=== PATIENT | female | born 1990 | race Caucasian/White ===

== ENCOUNTER → 2019-10-07 13:41 | Outpatient (CLI) | payer BC, SELFPAY ==
--- NOTE | ~2019-10-07 | US_ITS ---
US breast LT limited DATE: 10/07/2019 13:56 INDICATION: Left breast lump at 11:00 4 cm from nipple TECHNIQUE: High-resolution ultrasound imaging of the left breast targeted to area of clinical complai nt at 11:00 4 cm from nipple COMPARISON: None FINDINGS: There is no solid mass or suspicious shadowing, cyst or other significant finding. Clinical complaint. IMPRESSION: BI-RADS Category 1: Negative Recommendation: Routine mammographic screening beginning at age 40 unless there are earlier breast cl inical complaints or physical findings Reviewed, dictated and finalized at [facility]. Reviewed, dictated and finalized at location A. IMPRESSION: BI-RADS Category 1: Negative Recommendation: Routine mammographic screening beginning at age 40 unless there are earlier breast clinical complaints or physical findings
== END ==
PROVIDERS: PCP Family Medicine; Visit Provider Nurse Practitioner
DX: N63.20 Unspecified lump in the left breast, unspecified quadrant (principal)
CPT/HCPCS: 76642

== ENCOUNTER 2019-12-24 09:00 | Outpatient (CLI) | payer BC, SELFPAY ==
--- NOTE | ~2019-12-24 | XR_ITS ---
EXAMINATION: XR chest 2V 12/24/2019 09:27 INDICATION: Pleurodynia. Left-sided chest pain. PROCEDURE: 2 view chest COMPARISON: No prior studies for comparison. FINDINGS: The lungs are clear. The cardiomediastinal silhouette is within normal limits. There are no pleural effusions. There is no pneumothorax suspected. IMPRESSION: 1: NO ACUTE CARDIOPULMONARY DISEASE. Reviewed, dictated and finalized at location A.
== END 2019-12-24 09:01 | disposition home or self-care (01) ==
LOC: ANHIMG 09:05
PROVIDERS: PCP Family Medicine; Visit Provider Physician Assistant
DX: R07.81 Pleurodynia (principal)
CPT/HCPCS: 71046

== ENCOUNTER 2019-12-31 18:16 | Outpatient (CLI) | payer BC, SELFPAY ==
--- NOTE | ~2019-12-31 | MR_ITS ---
EXAMINATION: MR lumbar spine wo con DATE: 12/31/2019 19:18 INDICATION: Low back pain. TECHNIQUE: Magnetic resonance imaging (MRI) of the lumbar spine was performed without intravenous con trast. Sequences included sagittal T2-weighted FSE, sagittal T2-weighted FS FSE, sagittal T1-weighted FSE, and axial T2-weighted FSE. COMPARISON: 04/12/2016 FINDINGS: Alignment is normal. Vertebral body heights are normal. Normal marrow signal. Disc heights are kanu l. The conus medullaris terminates at L2. There is normal signal in the caudal spinal cord. Paraverte bral soft tissues are unremarkable. The following disc levels are specifically discussed: T12-L1: Disc is minimally bulging. There is mild right and minimal left facet joint osteoarthritis. T here is no neural foraminal stenosis. There is no central canal stenosis. L1-L2: Disc is mildly bulging. There is minimal right facet joint osteoarthritis. There is no neural foraminal stenosis. There is minimal central canal stenosis. L2-L3: Disc is mildly bulging. There is minimal bilateral facet joint osteoarthritis. There is mild l eft neural foraminal stenosis. There is minimal central canal stenosis. L3-L4: Disc is mildly bulging. There is mild bilateral facet joint osteoarthritis. There is mild left and minimal right neural foraminal stenosis. There is minimal central canal stenosis. L4-L5: Disc is mildly bulging. There is mild bilateral facet joint osteoarthritis. There is mild bila teral neural foraminal stenosis. There is minimal central canal stenosis. L5-S1: Disc is mildly bulging. There is mild bilateral facet joint osteoarthritis. There is mild bila teral neural foraminal stenosis. There is minimal central canal stenosis. IMPRESSION: 1. Slight progression in still mild lumbar spondylosis. Reviewed, dictated and finalized at location [facility].
== END 2019-12-31 18:17 | disposition home or self-care (01) ==
PROVIDERS: PCP Family Medicine; Visit Provider Physician Assistant
DX: M51.26 Other intervertebral disc displacement, lumbar region (principal); M51.27 Other intervertebral disc displacement, lumbosacral region; G89.29 Other chronic pain
CPT/HCPCS: 72148

== ENCOUNTER → 2021-02-17 09:20 | Outpatient (CLI) | payer BC, SELFPAY ==
--- NOTE | ~2021-02-17 | MMUS_ITS ---
EXAMINATION: MM diagnostic wilmar BI w brandi, US breast LT complete HISTORY: Palpable left breast lump TECHNIQUE: Additional 3-D tomosynthesis images of the breasts were performed and synthetic 2-D images were generated. CAD analysis was submitted and interpreted. High resolution bilateral breast ultraso und was performed. COMPARISON: Comparison to multiple prior studies sequentially, with oldest reviewed study dated 10/06. BREAST PARENCHYMAL COMPOSITION: The breasts are extremely dense, which lowers the sensitivity of mamm ography. FINDINGS: MAMMOGRAPHIC FINDINGS: There are no suspicious masses, calcifications or architectural distortion in either breast to sugges t malignancy. ULTRASOUND: Complete left breast ultrasound: No discrete mass is identified in the area of palpable concern. At 1 0:00, 1 cm from the nipple, there is a circumscribed oval hypoechoic mass measuring 1.2 x 0.7 x 0.3 c m, likely complicated cysts. There is parallel orientation, no significant posterior features and no internal vascularity. IMPRESSION: 1. Probable benign left breast mass at 10:00, 1 cm from the nipple. No definite mammographic correlat e. 2. Recommend 6 month follow-up targeted left breast ultrasound BI-RADS category 3, probably benign findings. Reviewed, dictated and finalized at location [facility]. IMPRESSION: 1. Probable benign left breast mass at 10:00, 1 cm from the nipple. No definite mammographic correlate. 2. Recommend 6 month follow-up targeted left breast ultrasound BI-RADS category 3, probably benign findings.
== END ==
PROVIDERS: Visit Provider Nurse Practitioner
DX: N63.20 Unspecified lump in the left breast, unspecified quadrant (principal); R92.8 Other abnormal and inconclusive findings on diagnostic imaging of breast
CPT/HCPCS: 76641; 77062; 77066; G0279

== ENCOUNTER → 2021-10-04 14:10 | Outpatient (CLI) | payer BC, SELFPAY ==
--- NOTE | ~2021-10-04 | CT_ITS ---
EXAMINATION: CT abdomen pelvis w con INDICATION: Generalized abdominal pain TECHNIQUE: Computed tomographic images of the abdomen and pelvis were obtained after the administrati on of 100 cc of Omnipaque 350 intravenous contrast. The dose-length product (DLP) was 418.34 mGy-cm. Automated exposure control and iterative reconstruction technique were employed. COMPARISON: None available FINDINGS: The lung bases are clear. The heart size is normal. The liver, spleen, pancreas, gallbladde r, and adrenal glands are normal. There is a 4 mm cyst of the right kidney. The left kidney is unrema rkable. No pathologically enlarged abdominal or pelvic lymph nodes are identified. Calcified atherosc lerosis is noted. The appendix is normal. There is no free intraperitoneal gas or evidence of bowel o bstruction. IMPRESSION: 1. No CT correlate for the patient's symptoms. Reviewed, dictated and finalized at location [facility].
== END ==
PROVIDERS: PCP Physician Assistant; Visit Provider Physician Assistant
DX: N20.0 Calculus of kidney (principal); F17.210 Nicotine dependence, cigarettes, uncomplicated
CPT/HCPCS: 74177; Q9967

== ENCOUNTER → 2021-10-11 09:07 | Outpatient (CLI) | payer BC, SELFPAY ==
--- NOTE | ~2021-10-11 | US_ITS ---
EXAMINATION: US breast LT limited HISTORY: Six-month follow-up for probably benign left breast mass TECHNIQUE: Limited left breast ultrasound was performed in the upper inner quadrant FINDINGS: There is a stable 1.2 x 0.4 cm oval, circumscribed, parallel, hypoechoic mass with no poste rior features or internal vascularity at the 10:00 location 1 cm from the nipple. IMPRESSION: Stable, probably benign left breast mass. Follow-up targeted ultrasound in six months is recommended. BI-RADS category 3, probably benign findings. Reviewed, dictated and finalized at location [facility].
== END ==
PROVIDERS: PCP Nurse Practitioner; Visit Provider Nurse Practitioner
DX: N63.20 Unspecified lump in the left breast, unspecified quadrant (principal); R92.8 Other abnormal and inconclusive findings on diagnostic imaging of breast
CPT/HCPCS: 76642

== ENCOUNTER 2021-10-22 09:28 | Outpatient (CLI) | payer BC, SELFPAY ==
--- NOTE | ~2021-10-22 | NM_ITS ---
EXAMINATION: NM hepatobiliary wo pharm DATE: 10/22/2021 11:53 INDICATION: Upper abdominal pain COMPARISON: None. TECHNIQUE: 5.0 mCi Tc-99m mebrofenin (Choletec) was administered intravenously. Scintigraphic images of the abdomen were obtained for one hour. At the 1 hour time point, the patient drank 8 oz Ensure, and imaging was continued for 60 minutes. Gallbladder ejection fraction was calculated by the technol ogist. FINDINGS: There is normal clearance of radiotracer from the blood pool. There is homogeneous tracer u ptake by the liver. Activity progresses to the bowel and gallbladder. The gallbladder ejection fract ion (GBEF) is 80%. Note that with this technique, normal GBEF >= 33%. IMPRESSION: 1. Normal hepatobiliary scan Reviewed, dictated and finalized at location [facility].
== END 2021-10-22 09:29 | disposition home or self-care (01) ==
PROVIDERS: PCP Physician Assistant; Visit Provider Physician Assistant
DX: R10.10 Upper abdominal pain, unspecified (principal)
CPT/HCPCS: 78226; A9537

== ENCOUNTER 2021-11-03 00:59 | Day surgery (SDC) | payer BC, SELFPAY ==
[2021-10-26 13:28] VITALS: BMI 25.0
--- NOTE | 2021-11-03 09:06 | WPDANESEPPF ---
Anes - Initial Pre Proc Eval Procedure: Operation Date: 11/03/21 13:15 Proposed Procedures p Esophagogastroduodenoscopy - Dougie Salmeron MD Date/Time: 11/03/21 09:06 Surgeon: Dougie Salmeron MD Pre Op Diagnosis: Abdominal pain Patient Data Age: 31 Gender: F Height: 1.63 m Weight: 66 kg Allergies Allergy/AdvReac Type Severity Reaction Status Date / Time Penicillins Allergy Intermediate Hives Verified 11/03/21 11:54 Sulfa (Sulfonamide AdvReac Intermediate Gastrointestinal Verified 11/03/21 11:54 Antibiotics) Upset sulfamethoxazole AdvReac Intermediate Gastrointestinal Verified 11/03/21 11:54 Upset trimethoprim AdvReac Intermediate Gastrointestinal Verified 11/03/21 11:54 Upset Home Medications Medication Instructions Recorded Confirmed Type cetirizine 10 mg tablet 10 mg PO HS 05/20/19 10/26/21 History budesonide-formoterol HFA 160 2 puff INHALATION Q12H #10.2 gm 08/12/19 10/26/21 Rx mcg-4.5 mcg/actuation aerosol inhaler montelukast 10 mg tablet 10 mg PO DAILY #90 tablet 11/28/19 10/26/21 Rx albuterol sulfate 90 mcg/actuation 1 puff INHALATION Q4H PRN #8 gm 12/18/19 10/26/21 Rx aerosol inhaler duloxetine 30 mg PO BID 10/26/21 10/26/21 History lorazepam 0.5 mg PO BID PRN 10/26/21 10/26/21 History pantoprazole 40 mg PO DAILY 10/26/21 10/26/21 History prazosin 2 mg PO HS PRN 10/26/21 10/26/21 History Patient hx anesthesia problems: none Family hx anesthesia problems: none Results Review: All pre-operative results and documents have been reviewed as part of the pre-operative evaluation. [facility] Past Medical History Medical History Anxiety and depression Asthma Benign tumor of breast Chronic headaches Chronic sinusitis DDD (degenerative disc disease) GERD (gastroesophageal reflux disease) History of intravenous drug use in remission Lumbar spondylosis Tobacco use Surgical History Surgical History H/O sinus surgery History of Family History Family History Mother Depression Anxiety Father Hypertension Anxiety Depression Sibling Depression Anxiety Grandparent Diabetes mellitus Depression Grandparent Heart disease Cerebrovascular accident Kidney failure Chronic mental illness Grandparent Breast cancer Cerebrovascular accident COPD (chronic obstructive pulmonary disease) Grandparent Heart disease COPD (chronic obstructive pulmonary disease) Social History Social History Smoking packs per day: 0.75 Smoking cigarettes per day: 15.0 Years smoked: 21 Smoking pack-years: 15.75 Smoking status: Current every day smoker Tobacco type: cigarettes Alcohol intake: current Substance use: never Substance use type: marijuana Other substance usage details: SMOKE- DAILY- MEDICAL CARD Living arrangements: with family Spiritual care concerns: No Anes - Eval Final PreProcedure Day of Procedure 11/03/21 09:06 Patient weight: normal Heart: regular rate and rhythm Lungs: clear to auscultation and normal air movement Airway: Mallampati scale class II Neurological: alert and oriented Last oral intake: >/= 8 hours ASA classification: II Emergent: no Anesthetic plan: proceed Anesthesia type and monitoring: general GIVS Results Review: All pre-operative results and documents have been reviewed as part of the pre-operative evaluation. Informed Consent: The patient's anesthetic plan and its attendant risks and benefits were discussed with the patient/family/POA. Questions were solicited and answers provided to the satisfaction of the patient/family/POA.
--- NOTE | 2021-11-03 11:56 | WPDGICN ---
Assessment and Plan Assessment and plan (1) Epigastric pain: Code(s): R10.13 - Epigastric pain Status: Acute Assessment and Plan: EGD with possible biopsy or dilatation or cautery. GI Consult Note Consult date/time: 11/03/21 11:56 HPI: Marily Arroyo is a 31 year old female Who has been having epigastric and upper abdominal pain for the last few months. It is often worse after eating. Prilosec helps somewhat. It is a burning and also a sharp pain at times. This has been going on for several months. recently was so severe that she had to leave work. She has a pain in the umbilical area and also epigastric area, often at the same time. We will occur every few days. She began taking pantoprazole in has helped it somewhat, taking the edge off. But she is still afraid to eat because of fear of the symptoms coming back Review of Systems Review of Systems: All systems reviewed & are unremarkable except as noted in HPI and below PMFSH Past Medical History Medical History Anxiety and depression Asthma Benign tumor of breast Chronic headaches Chronic sinusitis DDD (degenerative disc disease) GERD (gastroesophageal reflux disease) History of intravenous drug use in remission Lumbar spondylosis Tobacco use Surgical History Surgical History H/O sinus surgery History of Family History Family History Mother Depression Anxiety Father Hypertension Anxiety Depression Sibling Depression Anxiety Grandparent Diabetes mellitus Depression Grandparent Heart disease Cerebrovascular accident Kidney failure Chronic mental illness Grandparent Breast cancer Cerebrovascular accident COPD (chronic obstructive pulmonary disease) Grandparent Heart disease COPD (chronic obstructive pulmonary disease) Social History Social History Smoking packs per day: 0.75 Smoking cigarettes per day: 15.0 Years smoked: 21 Smoking pack-years: 15.75 Smoking status: Current every day smoker Tobacco type: cigarettes Alcohol intake: current Substance use: never Substance use type: marijuana Other substance usage details: SMOKE- DAILY- MEDICAL CARD Living arrangements: with family Spiritual care concerns: No Meds Home Medications and Allergies Home Medications Medication Instructions Recorded Confirmed Type cetirizine 10 mg tablet 10 mg PO HS 05/20/19 10/26/21 History budesonide-formoterol HFA 160 2 puff INHALATION Q12H #10.2 gm 08/12/19 10/26/21 Rx mcg-4.5 mcg/actuation aerosol inhaler montelukast 10 mg tablet 10 mg PO DAILY #90 tablet 11/28/19 10/26/21 Rx albuterol sulfate 90 mcg/actuation 1 puff INHALATION Q4H PRN #8 gm 12/18/19 10/26/21 Rx aerosol inhaler duloxetine 30 mg PO BID 10/26/21 10/26/21 History lorazepam 0.5 mg PO BID PRN 10/26/21 10/26/21 History pantoprazole 40 mg PO DAILY 10/26/21 10/26/21 History prazosin 2 mg PO HS PRN 10/26/21 10/26/21 History Allergies Allergy/AdvReac Type Severity Reaction Status Date / Time Penicillins Allergy Intermediate Hives Verified 11/03/21 11:54 Sulfa (Sulfonamide AdvReac Intermediate Gastrointestinal Verified 11/03/21 11:54 Antibiotics) Upset sulfamethoxazole AdvReac Intermediate Gastrointestinal Verified 11/03/21 11:54 Upset trimethoprim AdvReac Intermediate Gastrointestinal Verified 11/03/21 11:54 Upset Exam Const: General: alert Orientation/consciousness: patient oriented x3 Resp: Auscultation: clear to auscultation bilaterally Cardio: Rhythm: regular rhythm GI: GI Palp: Yes Soft to palpation and No Tenderness to palpation present (GI) Neuro: General: patient oriented x3
[2021-11-03 11:59] VITALS: BP 105/63; PULSE 77; RESP 18; TEMP 36.7; O2SAT 99
[2021-11-03] MEDS: LACTATED RINGERS 1,000 ML 150 ML IV CONT (12:05)
[2021-11-03 12:45] VITALS: BP 93/56; PULSE 78; RESP 19; O2SAT 100
[2021-11-03 12:55] VITALS: BP 120/82; PULSE 86; RESP 18; O2SAT 100
[2021-11-03 13:05] VITALS: BP 125/81; PULSE 80; RESP 24; O2SAT 98
== END 2021-11-03 13:17 | disposition home or self-care (01) ==
PROVIDERS: PCP Physician Assistant; Visit Provider Internal Medicine Gastroenterology
PROC: 0DJ08ZZ Inspection of Upper Intestinal Tract, Via Natural or Artificial Opening Endoscopic (ICD-10-PCS; CPT 43235; principal; 2021-11-03 13:15)
DX: K29.50 Unspecified chronic gastritis without bleeding (principal); J45.909 Unspecified asthma, uncomplicated; K21.9 Gastro-esophageal reflux disease without esophagitis; F41.8 Other specified anxiety disorders; Z79.51 Long term (current) use of inhaled steroids; F17.210 Nicotine dependence, cigarettes, uncomplicated; F12.90 Cannabis use, unspecified, uncomplicated
CPT/HCPCS: 43239; 87081; 88305; J2704; J7120

== ENCOUNTER → 2022-02-25 09:26 | Outpatient (CLI) | payer BC, SELFPAY ==
--- NOTE | ~2022-02-25 | CT_ITS ---
EXAMINATION: CT sinus wo con DATE: 02/25/2022 09:39 INDICATION: Chronic sinusitis. History of sinus surgery 3-4 years ago TECHNIQUE: Computed tomography (CT) of the paranasal sinuses was performed without contrast. Iterativ e reconstruction technique was employed. Exam dose: 268.51 mGy-cm total exam DLP. COMPARISON: 03/08/2018 CT sinuses There is rightward deviation of the nasal septum. There is prominent asymmetric soft tissue swelling of the left middle and inferior nasal turbinates. The ostiomeatal units are patent bilaterally. FINDINGS: Focal soft tissue thickening is evident several areas of the ethmoid air cells which are otherwise no rmally developed and aerated. The frontal sinuses, sphenoid sinuses and maxillary sinuses are well-developed and aerated. The mastoid air cells are well-developed and aerated. Middle and inner ear apparatus appear unremarkable bilaterally. IMPRESSION: Minimal patchy soft tissue thickening of the ethmoid air cells; paranasal sinuses, ostio meatal units and mastoid air cells otherwise are clear Rightward deviation of nasal septum Asymmetric soft tissue swelling of left nasal turbinates Reviewed, dictated and finalized at [facility]. Reviewed, dictated and finalized at location B. IMPRESSION: Minimal patchy soft tissue thickening of the ethmoid air cells; pa ranasal sinuses, ostiomeatal units and mastoid air cells otherwise are clear Rightward deviation of nasal septum Asymmetric soft tissue swelling of left nasal turbinates
== END ==
PROVIDERS: PCP Physician Assistant; Visit Provider Physician Assistant
DX: J32.9 Chronic sinusitis, unspecified (principal)
CPT/HCPCS: 70486

== ENCOUNTER 2022-05-07 09:33 | Emergency (ER) | payer BC, SELFPAY ==
--- NOTE | ~2022-05-07 | XR_ITS ---
EXAMINATION: XR wrist LT min 3V DATE: 05/07/2022 10:23 INDICATION: Left wrist pain TECHNIQUE: Posteroanterior, ulnar deviation, oblique, and lateral views of the left wrist were obtain ed. COMPARISON: None available FINDINGS: There is no fracture, dislocation, or subluxation. The bones, soft tissues, and joint space s are normal. IMPRESSION: 1. No acute osseous abnormality. Reviewed, dictated and finalized at location A.
--- NOTE | 2022-05-07 09:43 | ED.GENADULT ---
HPI - General Adult General Chief complaint: Extremity Injury, Upper Stated complaint: left wrist pain Time Seen by Provider: 05/07/22 10:10 Source: patient Mode of arrival: ambulatory Limitations: no limitations History of Present Illness HPI narrative: 32-year-old female patient presents to the [facility] with complaints of left wrist pain. Patient states about 2 days ago she went to go and lift up a mop bucket and felt like her wrist gave out. Patient states since then she has been having pain on the ulnar side of the wrist. Patient states she has iced it as well as taken some Tylenol which really has not helped much for her pain. Denies any numbness or tingling to the fingertips. Denies any pain to the elbow. Related Data Home Medications Medication Instructions Recorded Confirmed cetirizine 10 mg tablet (Zyrtec) 10 mg PO HS 05/20/19 10/26/21 lorazepam 0.5 mg tablet 0.5 mg PO BID PRN Anxiety 10/26/21 10/26/21 pantoprazole 40 mg tablet,delayed 40 mg PO DAILY 10/26/21 10/26/21 release desvenlafaxine succinate 25 mg mg PO 05/07/22 tablet,extended release 24 hr Allergies Allergy/AdvReac Type Severity Reaction Status Date / Time Penicillins Allergy Intermediate Hives Verified 05/07/22 09:55 Sulfa (Sulfonamide AdvReac Intermediate Gastrointestinal Verified 05/07/22 09:55 Antibiotics) Upset sulfamethoxazole AdvReac Intermediate Gastrointestinal Verified 05/07/22 09:55 Upset trimethoprim AdvReac Intermediate Gastrointestinal Verified 05/07/22 09:55 Upset Review of Systems Review of Systems: CONSTITUTIONAL: Denies fever, chills, or sweats. EYES: Denies visual changes, redness, or discharge. ENT: Denies rhinorrhea, congestion, sore throat, or otalgia. CARDIOVASCULAR: Denies chest pain, palpitations, or edema. RESPIRATORY: Denies cough or dyspnea. GASTROINTESTINAL: Denies abdominal pain, nausea, vomiting, or diarrhea. GENITOURINARY: Denies dysuria or hematuria. SKIN: Denies rash or itching. MUSCULOSKELETAL: Denies back pain, joint pain, or myalgia. Positive left wrist pain NEUROLOGIC: Denies headache, numbness, or weakness. PSYCHIATRIC: Denies anxiety or depression. [facility] Past Medical History Medical History Anxiety and depression Asthma Benign tumor of breast Chronic headaches Chronic sinusitis DDD (degenerative disc disease) GERD (gastroesophageal reflux disease) History of intravenous drug use in remission Lumbar spondylosis Tobacco use Surgical History Surgical History H/O sinus surgery History of Family History Family History Mother Depression Anxiety Father Hypertension Anxiety Depression Sibling Depression Anxiety Grandparent Diabetes mellitus Depression Grandparent Heart disease Cerebrovascular accident Kidney failure Chronic mental illness Grandparent Breast cancer Cerebrovascular accident COPD (chronic obstructive pulmonary disease) Grandparent Heart disease COPD (chronic obstructive pulmonary disease) Social History Social History Smoking packs per day: 0.75 Smoking cigarettes per day: 15.0 Years smoked: 21 Smoking pack-years: 15.75 Smoking status: Current every day smoker Tobacco type: cigarettes Alcohol intake: current Substance use: never Substance use type: marijuana Other substance usage details: SMOKE- DAILY- MEDICAL CARD Spiritual care concerns: No Comments At the time of my signature I agree with nursing past medical history, surgical, social, and family history. There is no relevant family history pertinent to the presenting complaint. Exam Narrative: GENERAL: Well-appearing, well-nourished, and in no acute distress. HEAD: Normocephalic, atraumatic. EYES: PERRLA and EOMI. ENT: Nares clear, no rhin
[2022-05-07 09:47] VITALS: BP 124/67; PULSE 86; RESP 16; TEMP 36.1; O2SAT 99
== END 2022-05-07 11:08 | disposition home or self-care (01) ==
PROVIDERS: Emergency Provider Nurse Practitioner Family; PCP Physician Assistant
DX: S63.502A Unspecified sprain of left wrist, initial encounter (principal); X50.0XXA Overexertion from strenuous movement or load, initial encounter; F41.9 Anxiety disorder, unspecified; F32.A Depression, unspecified; J45.909 Unspecified asthma, uncomplicated; K21.9 Gastro-esophageal reflux disease without esophagitis; M47.816 Spondylosis without myelopathy or radiculopathy, lumbar region
CPT/HCPCS: 73110; 99213; G0463

== ENCOUNTER → 2022-12-09 14:23 | Outpatient (CLI) | payer OTHER, BC, SELFPAY ==
--- NOTE | ~2022-12-09 | US_ITS ---
US breast BI limited INDICATION: Left nipple pain and swelling. Palpable right breast abnormalities. TECHNIQUE: Dedicated bilateral limited breast ultrasound COMPARISON: Comparison to multiple prior studies sequentially, with oldest reviewed study dated 10/2020. FINDINGS: The right breast breast is composed of normal heterogeneous echotexture without focal solid or cystic mass. Left breast contains a stable oval circumscribed hypoechoic mass with parallel orientation, circumscr ibed margins and no significant posterior features measuring 11 x 9 x 3 mm, unchanged from prior stud ies dating back to 02/17/2021. IMPRESSION: 1: Probable benign left breast mass at 10:00, 1 cm from the nipple measuring up to 11 mm. No signific ant interval change. No sonographic evidence for malignancy in the right breast. BI-RADS CATEGORY 3-PROBABLY BENIGN FINDING RECOMMENDATION: 12 month follow-up left breast ultrasound recommended. Reviewed, dictated and finalized at location B. IMPRESSION: 1: Probable benign left breast mass at 10:00, 1 cm from the nipple measuring up to 11 mm. No significant interval change. No sonographic evidence for malignan cy in the right breast. BI-RADS CATEGORY 3-PROBABLY BENIGN FINDING RECOMMENDATION: 12 month follow-up left breast ultrasound recommended.
== END ==
PROVIDERS: PCP Physician Assistant; Visit Provider Obstetrics & Gynecology Gynecology
DX: N63.20 Unspecified lump in the left breast, unspecified quadrant (principal); R92.8 Other abnormal and inconclusive findings on diagnostic imaging of breast
CPT/HCPCS: 76642

== ENCOUNTER 2023-01-19 10:09 | Emergency (ER) | payer OTHER, BC, SELFPAY ==
--- NOTE | ~2023-01-19 | XR_ITS ---
Cervical Spine: AP, lateral, open-mouth views Clinical History: Pain Findings: There is mild reversal of the normal cervical lordosis. The vertebral bodies and posterior elements appear intact. The intervertebral disc spaces are well maintained. Pre-vertebral soft tiss ues are unremarkable. Impression: Mild reversal of the normal cervical lordosis, otherwise unremarkable exam. Reviewed, dictated and finalized at location . Impression: Mild reversal of the normal cervical lordosis, otherwise unremarkable exam.
[2023-01-19 10:18] VITALS: BP 127/91; PULSE 106; RESP 16; TEMP 37.3; O2SAT 99
--- NOTE | 2023-01-19 10:43 | ED.NECK ---
HPI - Neck Pain/Injury General Chief Complaint: Neck Pain/Injury Stated Complaint: Neck Pain/Headache Time Seen by Provider: 01/19/23 10:43 Source: patient Mode of arrival: ambulatory Limitations: no limitations History of Present Illness HPI Narrative: 33-year-old female presents with complaint of posterior neck pain with radiation into bilateral upper back with movement for the past 8 days. Patient taking ibuprofen with no relief of pain. Denies injury. Pain worse with movement. States that she feels very stiff in her neck. No radiation of pain to upper extremities. Denies numbness, tingling. Intermittently has had headaches that she relates to that neck pain. Denies nausea vomiting. Afebrile. No URI symptoms. No vision changes. All systems reviewed and negative except as noted above. Related Data Home Medications Medication Instructions Recorded Confirmed cetirizine 10 mg tablet (Zyrtec) 10 mg PO HS 05/20/19 10/26/21 lorazepam 0.5 mg tablet 0.5 mg PO BID PRN Anxiety 10/26/21 10/26/21 pantoprazole 40 mg tablet,delayed 40 mg PO DAILY 10/26/21 10/26/21 release atomoxetine 40 mg capsule mg PO 01/19/23 01/19/23 Allergies Allergy/AdvReac Type Severity Reaction Status Date / Time Penicillins Allergy Intermediate Hives Verified 05/07/22 09:55 doxycycline Allergy Headache Verified 01/19/23 10:23 Sulfa (Sulfonamide AdvReac Intermediate Gastrointestinal Verified 05/07/22 09:55 Antibiotics) Upset sulfamethoxazole AdvReac Intermediate Gastrointestinal Verified 05/07/22 09:55 Upset trimethoprim AdvReac Intermediate Gastrointestinal Verified 05/07/22 09:55 Upset Review of Systems Review of Systems: CONSTITUTIONAL: Denies fever, chills, or sweats. EYES: Denies visual changes, redness, or discharge. ENT: Denies rhinorrhea, congestion, sore throat, or otalgia. CARDIOVASCULAR: Denies chest pain, palpitations, or edema. RESPIRATORY: Denies cough or dyspnea. GASTROINTESTINAL: Denies abdominal pain, nausea, vomiting, or diarrhea. GENITOURINARY: Denies dysuria or hematuria. SKIN: Denies rash or itching. MUSCULOSKELETAL: Denies back pain, joint pain, or myalgia. Reports posterior neck pain. NEUROLOGIC: Reports intermittent headache. Denies numbness, or weakness. PSYCHIATRIC: Denies anxiety or depression. All other systems reviewed are negative, except as documented in HPI. [facility] Past Medical History Medical History Anxiety and depression Asthma Benign tumor of breast Chronic headaches Chronic sinusitis DDD (degenerative disc disease) GERD (gastroesophageal reflux disease) History of intravenous drug use in remission Lumbar spondylosis Tobacco use Surgical History Surgical History H/O sinus surgery History of Family History Family History Mother Depression Anxiety Father Hypertension Anxiety Depression Sibling Depression Anxiety Grandparent Diabetes mellitus Depression Grandparent Heart disease Cerebrovascular accident Kidney failure Chronic mental illness Grandparent Breast cancer Cerebrovascular accident COPD (chronic obstructive pulmonary disease) Grandparent Heart disease COPD (chronic obstructive pulmonary disease) Social History Social History Smoking packs per day: 0.75 Smoking cigarettes per day: 15.0 Years smoked: 21 Smoking pack-years: 15.75 Smoking status: Current every day smoker Tobacco type: cigarettes Alcohol intake: current Substance use: never Substance use type: marijuana Other substance usage details: SMOKE- DAILY- MEDICAL CARD Living arrangements: with family Spiritual care concerns: No Comments At time of signature, agree with nursing past medical, surgical, social and family history. There is no relevant fa
== END 2023-01-19 11:28 | disposition home or self-care (01) ==
PROVIDERS: Emergency Provider Nurse Practitioner Family; PCP Physician Assistant
DX: S16.1XXA Strain of muscle, fascia and tendon at neck level, initial encounter (principal); X58.XXXA Exposure to other specified factors, initial encounter; F41.9 Anxiety disorder, unspecified; K21.9 Gastro-esophageal reflux disease without esophagitis
CPT/HCPCS: 72040; 99213; G0463

== ENCOUNTER → 2023-04-29 10:30 | Outpatient (CLI) | payer OTHER, BC, SELFPAY ==
--- NOTE | ~2023-04-29 | MR_ITS ---
EXAMINATION: MR lumbar spine wo con DATE: 04/29/2023 11:09 INDICATION: Lumbar radiculopathy. Chronic low back pain. TECHNIQUE: Magnetic resonance imaging (MRI) of the lumbar spine was performed without intravenous con trast. Sequences included sagittal T2-weighted FSE, sagittal T2-weighted FS FSE, sagittal T1-weighted FSE, and axial T2-weighted FSE. COMPARISON: Lumbar spine MRI 12/31/2019 FINDINGS: Bone alignment is normal. Vertebral body heights are normal. Intervertebral disc heights ar e normal. The distal spinal cord signal intensity is normal. The conus medullaris is at L2. The follo wing disc levels are specifically discussed: L1-L2: The disc does not extend beyond the endplate margin. There is mild bilateral facet joint osteo arthritis. There is no neural foraminal stenosis. There is no central canal stenosis. L2-L3: The disc does not extend beyond the endplate margin. There is mild lateral facet joint osteoar thritis. There is no neural foraminal stenosis. There is no central canal stenosis. L3-L4: The disc does not extend beyond the endplate margin. There is mild bilateral facet joint osteo arthritis. There is no neural foraminal stenosis. There is no central canal stenosis. L4-L5: The disc is bulging. There is severe bilateral facet joint osteoarthritis. There is mild bilat eral neural foraminal stenosis. There is mild central canal stenosis. L5-S1: The disc is bulging and has an annular fissure. There is mild bilateral facet joint osteoarthr itis. There is mild bilateral neural foraminal stenosis. There is mild central canal stenosis. IMPRESSION: 1. Mild lumbar spondylosis, stable from 12/31/2019. Reviewed, dictated and finalized at location A.
== END ==
PROVIDERS: PCP Nurse Practitioner Family; Visit Provider Nurse Practitioner Family
DX: M47.26 Other spondylosis with radiculopathy, lumbar region (principal)
CPT/HCPCS: 72148